=== PATIENT | male | born 1935 | race Caucasian/White ===

== ENCOUNTER 2018-02-13 09:59 | Outpatient (REF) | payer OTHER, SELFPAY ==
[2018-02-13 21:39] LABS: Anion Gap 10.9 mmol/L (3-11); BUN 16 mg/dL (7-18); CO2 25.1 mmol/L (21.0-32.0); CREATININE 1.04 mg/dL (0.70-1.30); Calcium 9.8 mg/dL (8.5-10.1); Chloride 102 mmol/L (98-107); Cholesterol 198 mg/dL (50-200); Glucose 119 mg/dL (70-100); HDL Cholesterol 39 mg/dL (40-60); LDL CHOLESTEROL 106 mg/dL (<100); Potassium 4.5 mmol/L (3.5-5.1); Sodium 138 mmol/L (136-145); Triglyceride 365 mg/dL (30-150)
[2018-02-13 21:54] LABS: Hemoglobin A1C 6.3 % (4.5-6.2)
== END 2018-02-13 10:19 ==
LOC: NCHCN 09:59
PROVIDERS: PCP Internal Medicine; Visit Provider Internal Medicine
DX: E78.00 Pure hypercholesterolemia, unspecified (principal); R73.09 Other abnormal glucose; E66.9 Obesity, unspecified
CPT/HCPCS: 80048; 80061; 83721; 83036

== ENCOUNTER 2018-08-28 10:34 | Outpatient (REF) | payer OTHER, SELFPAY ==
[2018-08-28 20:50] LABS: Glucose 118 mg/dL (70-100)
[2018-08-29 14:31] LABS: Hemoglobin A1C 6.3 % (4.5-6.2)
== END 2018-08-28 10:54 ==
LOC: NCHCN 10:34
PROVIDERS: PCP Internal Medicine; Visit Provider Internal Medicine
DX: E74.39 Other disorders of intestinal carbohydrate absorption (principal)
CPT/HCPCS: 82947; 83036

== ENCOUNTER 2019-09-28 12:56 | Outpatient (REF) | payer OTHER, SELFPAY ==
[2019-09-28 22:15] LABS: Hemoglobin A1C 6.4 % (3.8-5.6)
[2019-09-28 22:27] LABS: Anion Gap 12.9 mmol/L (3-11); BUN 21 mg/dL (7-18); CO2 25.1 mmol/L (21.0-32.0); CREATININE 1.11 mg/dL (0.70-1.30); Calcium 9.7 mg/dL (8.5-10.1); Calculated LDL 101 mg/dL (<100); Chloride 104 mmol/L (98-107); Cholesterol 223 mg/dL (<200); Glucose 113 mg/dL (74-106); HDL Cholesterol 46 mg/dL (40-60); Potassium 4.2 mmol/L (3.5-5.1); Sodium 142 mmol/L (136-145); Triglyceride 382 mg/dL (<150)
[2019-09-30 09:17] LABS: PSA, Diagnostic 1.8 ng/mL (0.0-6.5)
== END 2019-09-28 13:16 ==
LOC: NCHCN 12:56
PROVIDERS: PCP Internal Medicine; Visit Provider Internal Medicine
DX: E74.39 Other disorders of intestinal carbohydrate absorption (principal); E66.9 Obesity, unspecified; E78.00 Pure hypercholesterolemia, unspecified; R73.09 Other abnormal glucose; C61 Malignant neoplasm of prostate
CPT/HCPCS: 80048; 80061; 83036; 84153

== ENCOUNTER 2020-01-05 11:20 | Outpatient (REF) | payer OTHER, SELFPAY ==
[2020-01-05 22:25] LABS: Hemoglobin A1C 6.1 % (<5.7)
[2020-01-06 18:02] LABS: PSA, Diagnostic 3.8 ng/mL (0.0-6.5)
== END 2020-01-05 11:40 ==
LOC: LBN 11:20
PROVIDERS: PCP Internal Medicine; Visit Provider Urology
DX: C61 Malignant neoplasm of prostate (principal); R73.09 Other abnormal glucose; E74.39 Other disorders of intestinal carbohydrate absorption
CPT/HCPCS: 83036; 84153

== ENCOUNTER 2020-03-31 00:39 | Outpatient (CLI) | payer OTHER, SELFPAY ==
[2020-03-31] VITALS (10 sets, daily range): BP systolic 94–113; BP diastolic 58–77; PULSE 120–128; RESP 16–20; TEMP 36.1–36.4; O2SAT 93–95
[2020-03-31] MEDS: Normal Saline 500 ML 30 ML IV (14:45)
[2020-03-31] MEDS: Normal Saline Flush 10 ML SYR IVP ×2 (14:45→15:52)
== END 2020-03-31 00:59 ==
PROVIDERS: PCP Internal Medicine; Visit Provider Family Medicine
DX: U07.1 COVID-19 (principal)
CPT/HCPCS: 96365

== ENCOUNTER 2020-05-05 18:34 | Outpatient (REF) | payer OTHER, SELFPAY ==
[2020-05-08 11:03] LABS: PSA, Diagnostic 10.7 ng/mL (0.0-6.5)
== END 2020-05-05 18:54 ==
LOC: NCHCN 18:34
PROVIDERS: PCP Internal Medicine; Visit Provider Registered Nurse
DX: C61 Malignant neoplasm of prostate (principal)
CPT/HCPCS: 84153